=== PATIENT | male | born 2005 | race Caucasian/White ===

== ENCOUNTER 2025-05-09 10:51 | Emergency (ER) | payer OTHER, SELFPAY ==
--- NOTE | ~2025-05-09 | XR_ITS ---
EXAMINATION: XR ankle RT min 3V, 05/09/2025 11:20 CDT HISTORY: pain medial aspect, football injury 2 weeks ago, COMPARISON: No comparisons available. Findings: No acute fracture or malalignment. No significant degenerative changes. Soft tissues unremarkable. Impression: No acute fracture or malalignment. Reviewed, dictated and finalized at location P. Impression: No acute fracture or malalignment.
[2025-05-09 11:03] VITALS: BP 114/65; PULSE 60; RESP 18; TEMP 36.6; O2SAT 99
--- NOTE | 2025-05-09 11:11 | ED_ITS ---
HPI - Extremity Injury (Lower) General Chief Complaint: Extremity Injury, Lower Stated Complaint: R Ankle Pain Time Seen by Provider: 05/09/25 11:11 Source: patient Mode of arrival: ambulatory Limitations: no limitations History of Present Illness HPI Narrative: 19 yo M presents with pain to R ankle/foot for 2 wks. Was playing flag football on turf field that was wet and slipped and came down hard onto R ankle. Pain initially following injury and then intermittent for pain 2 wks. Since yesterday pain has been constant. ROM and distal NV intact. All systems reviewd and negative except as noted above. Related Data Home Medications ?Medication ?Instructions ?Recorded ?Confirmed ?Last Taken ?Type No Home Medications 05/09/25 05/09/25 U nknown History Allergies Allergy/AdvReac Type Severity Reaction Status Date / Time No Known Allergies Allergy Verified 05/09/25 11:00 [facility] At time of signature, agree with nursing past medical, surgical, social and family history. There is no relevant family history pertinent to the presenting complaint. Exam Narrative: GENERAL: This is a well-nourished, well-developed patient, in no apparent distress. HEAD: normocephalic, atraumatic. EYES: PERRL. Sclera clear/white. Vision is grossly intact. EARS: External ears normal NOSE: External nose normal NECK: Neck supple, non-tender without lymphadenopathy, masses or thyromegaly. CARDIOVASCULAR: Regular rate and rhythm without murmurs, gallops, or rubs. RESPIRATORY: Clear to auscultation. Breath sounds equal bilaterally. No wheezes, rales, or rhonchi. SKIN: warm, Dry, intact with no suspicious lesions or rash, good texture and turgor. NEURO: awake, alert, and oriented to person, place and time. There were no obvious focal neurologic abnormalities. EXTREMITIES: tenderness just below medial malleolus. no significant swelling of deformity noted. normal ROM, distal NV intact. Course Course Level of Care: Express Care Visit Vital Signs Vital signs: Vital Signs Temperature 36.6 C 05/09/25 11:03 Pulse Rate 60 05/09/25 11:03 Respiratory Rate 18 05/09/25 11:03 Blood Pressure 114/65 05/09/25 11:03 Pulse Oximetry 99 05/09/25 11:03 Temperature 36.6 C 05/09/25 11:03 Pulse Rate 60 05/09/25 11:03 Respiratory Rate 18 05/09/25 11:03 Blood Pressure 114/65 05/09/25 11:03 Pulse Oximetry 99 05/09/25 11:03 Reviewed MDM - Extremity Injury (Lower) MDM Narrative Medical decision making narrative: X-ray of right ankle and is normal. Will apply Alex wrap. Recommend rice. Will follow up with primary care physician if not improving. Differential Diagnosis Differential diagnosis: Likely ankle sprain and strain and ankle fracture Imaging Data My impression: agree with radiologist Radiologist's impression: EXAMINATION: XR ankle RT min 3V, 05/09/2025 11:20 CDT HISTORY: pain medial aspect, football injury 2 weeks ago, COMPARISON: No comparisons available. Findings: No acute fracture or malalignment. No significant degenerative changes. Soft tissues unremarkable. Impression: No acute fracture or malalignment. Discharge Plan Discharge Clinical Impression: Right ankle strain Patient Disposition: Home Condition: Stable Instructions: Ankle Sprain (ED) Additional Instructions: The x-ray of your right ankle was negative for fracture. Wear Alex wrap to compress swelling, provide support. Wear supportive shoes. Avoid flip-flops, sandals. Take ibuprofen or Tylenol every 6-8 hours as needed for pain. Avoid strenuous activities that increase pain to right ankle such as running and jumping. Follow-up with your primary care physician if pain is not improving. Patient Language: Armenian Prescriptions: No Action No Home Medications Follow-up/Referrals: PHYSICIAN,INSURANCE VERIFICATION REP [Primary Care Provider, Internal Medicine] Time of Disposition: 12:07
== END 2025-05-09 12:11 | disposition home or self-care (01) ==
PROVIDERS: Emergency Provider Nurse Practitioner Family
DX: S96.911A Strain of unspecified muscle and tendon at ankle and foot level, right foot, initial encounter (principal); X58.XXXA Exposure to other specified factors, initial encounter; Y93.62 Activity, american flag or touch football
CPT/HCPCS: 73610; 99203; G0463